=== PATIENT | male | born 1935 | race Caucasian/White ===

== ENCOUNTER 2018-05-31 07:56 | Emergency (ER) | payer MEDICARE, OTHER ==
--- NOTE | 2018-05-31 08:00 | EDM.PDOC ---
ED HPI GENERAL MEDICAL PROBLEM - General Chief Complaint: Chest Pain Stated Complaint: CHEST PAIN Time Seen by Provider: 05/31/18 08:00 Source of Information: Reports: Patient History Limitations: Reports: No Limitations - History of Present Illness INITIAL COMMENTS - FREE TEXT/NARRATIVE: 83-year-old male presents to the ED with chief complaint of diffuse abdominal discomfort feeling very bloated and distended. Still passing some flatus. States she's been up most of the night not sleeping. Over the last hour or so he 's developed a diffuse central chest pain across both upper anterior chest. Burping seems to relieve the discomfort somewhat. Pain doesn't seem to radiate into his back neck or shoulders. Does make him feel somewhat short of breath. He is mildly diaphoretic. Used to smoke but quit 40 years ago. Denies cough or sputum production. Denies any fever or chills. He states he is still passing a little bit of flatus. Has intermittent diarrhea and constipation issues particularly over the last month. Does have a history of GERD but well controlled on Prilosec daily. Onset: Today Onset Date: 05/31/18 Onset Time: 07:15 Duration: Minutes: Location: Reports: Chest, Abdomen (Abdominals discomfort with bloated feeling most of the night.) Quality: Reports: Ache, Pressure Severity: Moderate Improves with: Reports: None (7 out of 10), Other (Perhaps slightly better with burping.) Worsens with: Reports: None Context: Denies: Activity, Exercise, Lifting, Sick Contact, Trauma, Other Associated Symptoms: Reports: Chest Pain, Diaphoresis, Loss of Appetite, Malaise , Nausea/Vomiting (Transient nausea earlier with no vomiting.), Shortness of Breath. Denies: No Other Symptoms, Confusion (Across upper anterior chest bilaterally), Cough, cough w sputum, Fever/Chills (Mild.), Headaches, Rash, Seizure, Syncope Treatments FEDERAL AGENT: Reports: Other (see below) (None.) Chest Pain Score (Numeric/FACES): 8 - Related Data Allergies Allergy/AdvReac Type Severity Reaction Status Date / Time No Known Allergies Allergy Verified 05/31/18 09:20 Home Meds: Home Meds Carvedilol 3.125 mg PO BID 05/31/18 [History] Omeprazole 20 mg PO DAILY 05/31/18 [History] Ramipril [Altace] 10 mg PO BEDTIME 05/31/18 [History] Ranitidine HCl [Zantac] 150 mg PO DAILY 05/31/18 [History] Past Medical History Cardiovascular History: Reports: Hypertension Gastrointestinal History: Reports: GERD, Other (See Below) (Previous primary resection of parts of his: Visibly due to diverticulitis with primary and a stenosis.) - Past Surgical History GI Surgical History: Reports: Appendectomy, Other (See Below) (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 Received chemotherapy through [facility] in [place]. ) Social & Family History - Tobacco Use Smoking Status *Q: Former Smoker (Quit 40 years ago) Tobacco Use Within Last Twelve Months: Cigarettes - Living Situation & Occupation Occupation: Retired ED ROS GENERAL - Review of Systems Review Of Systems: See Below Constitutional: Reports: Malaise, Fatigue, Decreased Appetite. Denies: Fever, Chills HEENT: Reports: Glasses Respiratory: Reports: Shortness of Breath. Denies: Wheezing, Pleuritic Chest Pain, Cough Cardiovascular: Reports: Chest Pain, Blood Pressure Problem (See history of present illness), Dyspnea on Exertion (Has appreciated increased edema of his lower extremities over the last 4-5 days each dyspnea on exertion the last for 5 days), Edema. Denies: Claudication, Lightheadedness, Orthopnea ( chronic hypertension) Endocrine: Reports: Fatigue GI/Abdominal: Reports: Abdominal Pain, Decreased Appetite. Denies: Constipation , Diarrhea (Diffuse abdominal discomfort particularly upper abdomen somewhat relieved by burping and belching.) : Reports: Frequency, Other (Nocturia 3 or 4 per night. Known prostatic hypertrophy) Musculoskeletal: Reports: Joint Pain (Knees hips neck shoulders back at times.) Skin: Reports: No Symptoms Neurological: Reports: No Symptoms Psychiatric: Reports: No Symptoms ED EXAM, GENERAL - Physical Exam Exam: See Below Exam Limited By: No Limitations General Appearance: Alert, WD/WN, Moderate Distress (He is in moderate distress mostly respiratory. Respiratory rate of 20/m. Sats are 100%.) Eye Exam: Right Eye: Normal Inspection (No jaundice.) Throat/Mouth: Normal Lips, Other Head: Atraumatic, Normocephalic Neck: Normal Inspection, Supple, Non-Tender, Full Range of Motion. No: Lymphadenopathy (L), Lymphadenopathy (R) Respiratory/Chest: Normal Breath Sounds, No Accessory Muscle Use, Chest Non- Tender, Respiratory Distress (Mild tachypnea at rest.). No: Rales, Rhonchi, Wheezing Cardiovascular: Regular Rate, Rhythm, No Gallop, No Murmur, No Rub. No: Normal Peripheral Pulses Peripheral Pulses: 1+: Posterior Tibial (L), Posterior Tibial (R), Dorsalis Pedis (L), Dorsalis Pedis (R) GI/Abdominal: Soft, Non-Tender, No Organomegaly, Distended (Palpable midabdominal mass with a small ventral hernia appreciated. Mild distended intubated to percussion particularly upper abdomen from aerophagia.), Abnormal Bowel Sounds (Hyperactive bowel sounds upper quadrant.), Other (He has had previous appendectomy. He states he had previous colon resection and primary reanastomosis. Apparently this was done because of diverticulitis. Patient does have a central abdominal mass larger than the palm of my hand compatible with a ventral hernia.) Back Exam: Normal Inspection, Full Range of Motion. No: CVA Tenderness (L), CVA Tenderness (R) Extremities: Normal Inspection, Normal Range of Motion, Pedal Edema (2+ pitting edema bilaterally.), Other (Evidence of arthritic changes in his knees and hips. ) Neurological: Alert, Oriented, CN II-XII Intact, Normal Cognition Psychiatric: Normal Affect, Normal Mood Skin Exam: Warm, Dry, Intact, Normal Color, Diaphoretic (Slight diaphoresis knee but neck appreciated on exam) EKG INTERPRETATION EKG Date: 05/31/18 Time: 08:10 Rhythm: NSR Rate (Beats/Min): 85 [place]: LAD-Left [place] Deviation P-Wave: Enlarged (Mild left axis deviation of -11. Left atrial hypertrophy pattern) QRS: Other (There is early R-wave transition compatible with right ventricular hypertrophy. There is left ventricular hypertrophy pattern as well.) ST-T: Depressed (Mild ST segment depression V2 to V6 as well as lead 1 and questionable aVL.) QT: Prolonged (QT interval is mildly prolonged.) EKG Interpretation Comments: Abnormal ECG Course - Vital Signs Last Recorded V/S: Last Vital Signs Temp 36.4 C 05/31/18 07:59 Pulse 94 05/31/18 07:59 Resp 16 05/31/18 07:59 BP 197/100 H 05/31/18 07:59 Pulse Ox 100 05/31/18 07:59 - Orders/Labs/Meds Orders: Active Orders 24 hr Category Date Time Status Bladder Scan [RC] ASDIRECTED Care 05/31/18 09:35 Active EKG Documentation Completion [RC] STAT Care 05/31/18 08:05 Active EKG Documentation Completion [RC] STAT Care 05/31/18 11:25 Active Insert Bales Catheter [Insert Urinary Catheter] [OM.PC] Care 05/31/18 10:00 Ordered Q24H Urinary Catheter Assessment [RC] ASDIRECTED Care 05/31/18 09:52 Active Chest 1V Frontal [CR] Stat Exams 05/31/18 08:05 Taken CBC W/O DIFF,HEMOGRAM [HEME] MOTH@0700 Lab 06/02/18 07:00 Ordered CBC W/O DIFF,HEMOGRAM [HEME] MOTH@0700 Lab 06/06/18 07:00 Ordered CBC W/O DIFF,HEMOGRAM [HEME] MOTH@0700 Lab 06/09/18 07:00 Ordered CBC W/O DIFF,HEMOGRAM [HEME] MOTH@0700 Lab 06/13/18 07:00 Ordered CBC W/O DIFF,HEMOGRAM [HEME] MOTH@0700 Lab 06/16/18 07:00 Ordered CBC W/O DIFF,HEMOGRAM [HEME] MOTH@0700 Lab 06/20/18 07:00 Ordered Heparin Sodium/D5W [Heparin 25,000 Units in D5W 500 ML] Med 05/31/18 11:30 Active 25,000 units in 500 ml IV TITRATE Nitroglycerin/D5W [Nitroglycerin 25 MG/D5W 250 ML] Med 05/31/18 08:15 Active 25 mg in 250 ml IV ASDIRECTED Sodium Chloride 0.9% [Normal Saline] 1,000 ml Med 05/31/18 08:15 Active IV ASDIRECTED Medication Orders Sodium Chloride (Normal Saline) 1,000 mls @ 125 mls/hr IV ASDIRECTED DAQUAN Last Admin: 05/31/18 08:55 Dose: 125 mls/hr Nitroglycerin/Dextrose (Nitroglycerin 25 Mg/D5w 250 Ml) 25 mg in 250 mls @ 6 mls/hr IV ASDIRECTED DAQUAN Last Admin: 05/31/18 08:58 Dose: 10 mcg/min, 6 mls/hr Heparin Sodium/Dextrose (Heparin 25,000 Units In D5w 500 Ml) 25,000 units in 500 mls @ 20 mls/hr IV TITRATE DAQUAN Last Admin: 05/31/18 11:32 Dose: 1,000 units/hr, 20 mls/hr Labs: Laboratory Tests 05/31/18 05/31/18 05/31/18 Range/Units 08:07 08:07 08:07 WBC 14.00 H (4.23-9.07) K/mm3 RBC 4.39 L (4.63-6.08) M/mm3 Hgb 14.1 (13.7-17.5) gm/L Hct 41.5 (40.1-51.0) % MCV 94.5 H (79.0-92.2) fl MCH 32.1 (25.7-32.2) pg MCHC 34.0 (32.2-35.5) g/dl RDW Std Deviation 43.9 (35.1-43.9) fL Plt Count 161 L (163-337) K/mm3 MPV 10.4 (9.4-12.3) fl Neutrophils % (Manual) 72 H (40-60) % Band Neutrophils % 6 (0-10) % Lymphocytes % (Manual) 10 L (20-40) % Atypical Lymphs % 0 % Monocytes % (Manual) 9 (2-10) % Eosinophils % (Manual) 3 (0.8-7.0) % Basophils % (Manual) 0 L (0.2-1.2) Toxic Granulation 1+ slight Platelet Estimate Decreased Plt Morphology Comment Normal RBC Morph Comment Normal Sodium 142 (136-145) mEq/L Potassium 3.9 (3.5-5.1) mEq/L Chloride 103 (98-107) mEq/L Carbon Dioxide 24 (21-32) mEq/L Anion Gap 18.9 H (5-15) BUN 21 H (7-18) mg/dL Creatinine 1.8 H (0.7-1.3) mg/dL Est Cr Clr Drug Dosing 28.05 mL/min Estimated GFR (MDRD) 36 (>60) mL/min BUN/Creatinine Ratio 11.7 L (14-18) Glucose 141 H (83-115) mg/dL Lactic Acid (0.4-2.0) mmol/L Calcium 9.8 (8.5-10.1) mg/dL Magnesium 1.9 (1.8-2.4) mg/dl Total Bilirubin 1.2 H (0.2-1.0) mg/dL AST 18 (15-37) U/L ALT 29 (16-63) U/L Alkaline Phosphatase 154 H (46-116) U/L CK-MB (CK-2) 3.1 (0-3.6) ng/ml Troponin I < 0.017 (0.00-0.056) ng/mL C-Reactive Protein < 0.2 (<1.0) mg/dL NT-Pro-B Natriuret Pep 922 H (0-450) pg/mL Total Protein 7.6 (6.4-8.2) g/dl Albumin 4.0 (3.4-5.0) g/dl Globulin 3.6 gm/dL Albumin/Globulin Ratio 1.1 (1-2) Lipase 86 (73-393) U/L 05/31/18 05/31/18 Range/Units 08:35 10:13 WBC (4.23-9.07) K/mm3 RBC (4.63-6.08) M/mm3 Hgb (13.7-17.5) gm/L Hct (40.1-51.0) % MCV (79.0-92.2) fl MCH (25.7-32.2) pg MCHC (32.2-35.5) g/dl RDW Std Deviation (35.1-43.9) fL Plt Count (163-337) K/mm3 MPV (9.4-12.3) fl Neutrophils % (Manual) (40-60) % Band Neutrophils % (0-10) % Lymphocytes % (Manual) (20-40) % Atypical Lymphs % % Monocytes % (Manual) (2-10) % Eosinophils % (Manual) (0.8-7.0) % Basophils % (Manual) (0.2-1.2) Toxic Granulation Platelet Estimate Plt Morphology Comment RBC Morph Comment Sodium (136-145) mEq/L Potassium (3.5-5.1) mEq/L Chloride (98-107) mEq/L Carbon Dioxide (21-32) mEq/L Anion Gap (5-15) BUN (7-18) mg/dL Creatinine (0.7-1.3) mg/dL Est Cr Clr Drug Dosing mL/min Estimated GFR (MDRD) (>60) mL/min BUN/Creatinine Ratio (14-18) Glucose (83-115) mg/dL Lactic Acid 2.9 H (0.4-2.0) mmol/L Calcium (8.5-10.1) mg/dL Magnesium (1.8-2.4) mg/dl Total Bilirubin (0.2-1.0) mg/dL AST (15-37) U/L ALT (16-63) U/L Alkaline Phosphatase (46-116) U/L CK-MB (CK-2) 3.9 H (0-3.6) ng/ml Troponin I 0.121 H* (0.00-0.056) ng/mL C-Reactive Protein (<1.0) mg/dL NT-Pro-B Natriuret Pep (0-450) pg/mL Total Protein (6.4-8.2) g/dl Albumin (3.4-5.0) g/dl Globulin gm/dL Albumin/Globulin Ratio (1-2) Lipase (73-393) U/L Meds: Medications Generic Name Dose Route Start Last Admin Trade Name Freq PRN Reason Stop Dose Admin Sodium Chloride 1,000 mls @ 125 mls/hr 05/31/18 08:15 05/31/18 08:55 Normal Saline IV 125 mls/hr ASDIRECTED DAQUAN Administration Nitroglycerin/Dextrose 25 mg in 250 mls @ 6 mls/hr 05/31/18 08:15 05/31/18 08 :58 Nitroglycerin 25 Mg/D5w 250 Ml IV 10 mcg/min ASDIRECTED DAQUAN 6 mls/hr Administration 10 MCG/MIN Heparin Sodium/Dextrose 25,000 units in 500 mls @ 20 mls/hr 05/31/18 11:30 11:32 Heparin 25,000 Units In D5w 500 Ml IV 1,000 units/hr TITRATE DAQUAN 20 mls/hr Administration 1,000 UNITS/HR Discontinued Medications Generic Name Dose Route Start Last Admin Trade Name Freq PRN Reason Stop Dose Admin Aspirin 324 mg 05/31/18 08:07 05/31/18 08:59 Aspirin PO 05/31/18 08:08 324 mg ONETIME ONE Administration Furosemide 40 mg 05/31/18 09:18 05/31/18 09:30 Lasix IVPUSH 05/31/18 09:19 40 mg NOW ONE Administration Heparin Sodium (Porcine) 5,000 units 05/31/18 11:22 05/31/18 11:30 Heparin Sodium IVPUSH 05/31/18 11:23 5,000 units ONETIME ONE Administration Hydromorphone HCl 0.5 mg 05/31/18 08:07 05/31/18 08:57 Dilaudid IVPUSH 05/31/18 08:08 0.5 mg ONETIME ONE Administration Lidocaine HCl 10 ml 05/31/18 09:51 05/31/18 09:57 Xylocaine 2% Jelly MUCMEM 05/31/18 09:52 10 ml ONETIME ONE Administration Metoclopramide HCl 7.5 mg 05/31/18 08:07 05/31/18 08:55 Reglan IVPUSH 05/31/18 08:08 7.5 mg ONETIME ONE Administration - Radiology Interpretation Free Text/Narrative:: 83-year-old male presents to the ED with diffuse abdominal discomfort feels very bloated and has been burping and belching most of the night and not sleeping because of this. About an hour ago he started to develop diffuse anterior chest discomfort across both sides of his upper anterior chest not radiating to his back. Burping seems to alleviate some of this chest discomfort. He has never expressed angina before. Past history of smoking but quit 40 years ago. Lungs are clear to since he is in sinus rhythm. BP is maintained at 190/92 at present. ECG suggests by ventricular hypertrophy right and left. There is very slight ST segment depression V2 to V6 and lead 1 questionable in aVL. Cannot rule out anterior wall ischemia. Patient will receive aspirin 324 mg chewed and be started on nitroglycerin drip at 10 mcg/m. One view chest x-ray one view abdomen to be done routine labs including cardiac markers BNP. He does have significant edema in both lower extremities compatible with right sided heart failure - Re-Assessments/Exams Free Text/Narrative Re-Assessment/Exam: 05/31/18 09:15 chest x-ray done portably appears to be within normal limits. Cardiac silhouette is normal. Lungs are clear. X-ray of the abdomen reveals increased stool right upper quadrant of the abdomen at the hepatic flexure. There is a large amount of air distending the small bowel with no definitive bowel obstruction. i.e. no air-fluid levels. Moreof an ileus type pattern. Very little air in the colon. Patient has had previous cholecystectomy and there is air in the biliary tree. Patient has hardware across the pubic symphysis. Bladder appears to be full as there is haziness within the pelvis. At present patient states his chest pain is pretty well gone. Blood pressure remains 143/88 on the nitro drip at 10 mcg/m. Heart rate is 96. Sats are 92-95%. 05/31/18 09:18 Labs reveal an elevated white count at 14.00 with 72% neutrophils and 6% band cells. Hemoglobin is 14.1. Hematocrit is 41.5. His 161, 000. Sodium 142 with a potassium of 3.9. Chloride 103 with a bicarbonate 24. And a gap is elevated at 18.9. BUNs 21 with a creatinine of 1.8. Estimated GFR is 36 i.e. stage III chronic kidney disease. Glucose is 141 with lactic acid elevated at 2.9. Calcium is 9.8 with a magnesium level of 1.9. Total bilirubin is mildly elevated at 1.2. AST is 18 and ALT is 29. Alkaline phosphatase is mildly elevated 154. CK-MB fraction is 3.1. Troponin I is less than 0.017. BNP is elevated at 922. Lipase is normal at 86. Plan he will be given Lasix 40 mg IV. We'll try and do a CT of his abdomen with oral contrast only. His creatinine is 1.8 with a GFR of 36 and therefore IV contrast will be withheld. 05/31/18 09:36 patient feels he still unable to void. Bladder scan will be done and likely will need a Bales catheter placement. 05/31/18 09:53 bladder scan reveals approximately 1410 mils of urine in the urinary bladder. Therefore Bales catheter will be placed and left in. Ordered urine jet to facilitate the procedure 05/31/18 11:13 Second set of cardiac markers will a man as a myocardial infarction. CK-MB fraction is 3.9 with troponin I of 0.121. Initial was less than 0.017 he will thus be started on heparin 5000 unit bolus and 1000 units an hour. Plan will be to transfer him to [place]. She reports his chest pain is pretty well gone. CT the abdomen and pelvis has been completed with oral contrast only. Clips are appreciated from previous cholecystectomy. There is noted within the biliary tree. Spleen appears to be within normal limits. Small nodule noted next to the spleen most likely representing accessory splenic tissue. I did land shows no nodule. Pancreas within normal limits. Aorta shows atherosclerotic calcification with mild areas of ectasia with no aneurysmal dilatation. There are noted dilated extrarenal pelvises bilaterally suggesting that he is likely suffering chronic obstructive uropathy. Bladder remains distended in spite of draining over 1500 mils since Bales catheter was placed. Prostate gland is markedly enlarged with multiple calcifications. There is noted within the bladder with Bales catheter in place. Multiple diverticula are seen within the sigmoid colon with no inflammatory changes to suggest diverticulitis. No small bowel dilatation is seen focal increased stool is appreciated throughout the right colon and right side of the transverse colon. Appendix is absent. Old bony trauma noted within the pelvis artifact appreciated from orthopedic hardware fixing the pubic symphysis. Scattered degenerative change with vacuum phenomenon is seen within the lumbar spine. 05/31/18 11:47 spoke with one call nurse at [facility] in [place] and hospitalist Dr Plata.. He is accepted care of the patient be transported to that institution per ground embolus. Plan will be to place him on a telemetry unit unless he develops further chest pain. 05/31/18 12:16 signs show BP 110/78. Heart rate 100 sats 97% on room air. [facility] will be here shortly to provide transport her to [place]. Departure - Departure Time of Disposition: 12:17 Disposition: DC/Tfer to Acute Hospital 02 Reason for Transfer *Q: Primary PCI Indicated Condition: Fair Clinical Impression: Acute urinary retention, Renal insufficiency Acute myocardial infarction Qualifiers: Myocardial infarction type: non-ST elevation myocardial infarction Qualified Code(s): I21.4 - Non-ST elevation (NSTEMI) myocardial infarction Referrals: Camilla Patiño NP [Primary Care Provider] - Forms: ED Department Discharge Additional Instructions: Patient presented with diffuse anterior chest pain right left sides. Initial ECG suggested right ventricular hypertrophy and left ventricular pressure to be with strain pattern. There is a possibility of mild ST segment depression V3 to V6. ECG was improved in terms of ST segment improvement back to baseline with a diffuse early repolarization pattern. However second set of cardiac markers done 2 hours from the time he arrived and approximate 4 hours from the time he developed the chest pain will demand as an infarct. He remains test for pain- free on nitro drip at 10 mcg/m. He did have 4 aspirins chewed when he came to the ED. Placed on heparin 5000 unit bolus and 1000 units an hour. Abdominal pain was his other chief complaint nonspecific nausea pressure below discomfort. Identified to be in acute urinary retention with greater than 1400 mils on bladder scan. He is over 2500 mils of urine since 16-gauge coud tip Bales catheter placement. He does have mild renal insufficiency markedly enlarged prostate on CT exam. - My Orders Last 24 Hours: My Active Orders 05/31/18 08:05 EKG Documentation Completion [RC] STAT Chest 1V Frontal [CR] Stat 05/31/18 08:15 Nitroglycerin/D5W [Nitroglycerin 25 MG/D5W 250 ML] 25 mg in 250 ml IV ASDIRECTED Sodium Chloride 0.9% [Normal Saline] 1,000 ml IV ASDIRECTED 05/31/18 09:35 Bladder Scan [RC] ASDIRECTED 05/31/18 09:52 Urinary Catheter Assessment [RC] ASDIRECTED 05/31/18 10:00 Insert Bales Catheter [Insert Urinary Catheter] [OM.PC] Q24H 05/31/18 11:25 EKG Documentation Completion [RC] STAT 05/31/18 11:30 Heparin Sodium/D5W [Heparin 25,000 Units in D5W 500 ML] 25,000 units in 500 ml IV TITRATE 06/02/18 07:00 CBC W/O DIFF,HEMOGRAM [HEME] MOTH@0700 06/06/18 07:00 CBC W/O DIFF,HEMOGRAM [HEME] MOTH@0700 06/09/18 07:00 CBC W/O DIFF,HEMOGRAM [HEME] MOTH@0700 06/13/18 07:00 CBC W/O DIFF,HEMOGRAM [HEME] MOTH@0700 06/16/18 07:00 CBC W/O DIFF,HEMOGRAM [HEME] MOTH@0700 06/20/18 07:00 CBC W/O DIFF,HEMOGRAM [HEME] MOTH@0700 - Assessment/Plan Last 24 Hours: My Active Orders 05/31/18 08:05 EKG Documentation Completion [RC] STAT Chest 1V Frontal [CR] Stat 05/31/18 08:15 Nitroglycerin/D5W [Nitroglycerin 25 MG/D5W 250 ML] 25 mg in 250 ml IV ASDIRECTED Sodium Chloride 0.9% [Normal Saline] 1,000 ml IV ASDIRECTED 05/31/18 09:35 Bladder Scan [RC] ASDIRECTED 05/31/18 09:52 Urinary Catheter Assessment [RC] ASDIRECTED 05/31/18 10:00 Insert Bales Catheter [Insert Urinary Catheter] [OM.PC] Q24H 05/31/18 11:25 EKG Documentation Completion [RC] STAT 05/31/18 11:30 Heparin Sodium/D5W [Heparin 25,000 Units in D5W 500 ML] 25,000 units in 500 ml IV TITRATE 06/02/18 07:00 CBC W/O DIFF,HEMOGRAM [HEME] MOTH@0700 06/06/18 07:00 CBC W/O DIFF,HEMOGRAM [HEME] MOTH@0700 06/09/18 07:00 CBC W/O DIFF,HEMOGRAM [HEME] MOTH@0700 06/13/18 07:00 CBC W/O DIFF,HEMOGRAM [HEME] MOTH@0700 06/16/18 07:00 CBC W/O DIFF,HEMOGRAM [HEME] MOTH@0700 06/20/18 07:00 CBC W/O DIFF,HEMOGRAM [HEME] MOTH@0700
[2018-05-31] MEDS ORDERED: HYDROmorphone 1 MG/ML Syringe IVPUSH ONE (08:07)
[2018-05-31] MEDS ORDERED: Aspirin 81 MG Tab.Chew PO ONE (08:07)
[2018-05-31] MEDS ORDERED: Metoclopramide 10 MG/2 ML SDV IVPUSH ONE (08:07)
[2018-05-31] MEDS ORDERED: Sodium Chloride 0.9% 1,000 ML IV SCH (08:15)
[2018-05-31] MEDS ORDERED: Nitroglycerin/D5W 25 MG/250 ML BOTTLE IV SCH (08:15)
[2018-05-31] MEDS ORDERED: Furosemide 40 MG/4 ML VIAL IVPUSH ONE (09:18)
--- NOTE | 2018-05-31 09:27 | CR ---
Abdomen: Supine view of the abdomen was obtained. Comparison: No prior abdominal x-ray. Old trauma to the pelvis is seen. Orthopedic hardware is noted across the pubic symphysis. Vascular calcification is noted. Scattered gas is noted within multiple small bowel loops which are not dilated. Small amount of colonic gas is noted. Degenerative change is scattered within the spine. Previous cholecystectomy is noted. Biliary air is present. Soft tissue density arising from the pelvis is seen most likely representing a urine distended bladder. Impression: 1. Slightly prominent gas within nondilated small bowel loops raising the possibility of ileus. 2. Haziness within the pelvis presumably due to urine distended bladder. 3. Other incidental findings. Diagnostic code #3
[2018-05-31] MEDS ORDERED: Lidocaine 2% Jelly 10 ML Urojet MUCMEM ONE (09:51)
--- NOTE | 2018-05-31 11:12 | CT ---
CT abdomen and pelvis Technique: Multiple axial sections were obtained from above the dome of the diaphragm inferiorly through the pubic symphysis. Intravenous contrast not utilized. Oral contrast has been given. Comparison: Prior abdominal x-ray performed earlier on the same day (08:19 AM). Findings: Visualized lung bases are clear of acute parenchymal densities. Noncontrast appearance of the liver shows no focal abnormality. Surgical clips are seen from prior cholecystectomy. Air noted within the biliary tree. Spleen appears within normal limits. Small nodule noted next to the spleen most likely representing accessory splenic tissue. Adrenal glands show no nodule. Pancreas is within normal limits. Aorta shows atherosclerotic calcification with mild areas of ectasia with no aneurysm. Dilated extrarenal pelves are seen on both sides as well as dilated ureters down to the bladder. Bladder is distended. Prostate gland is enlarged. Air is noted within the bladder with Bales catheter in place. Calcifications are seen within the enlarged prostate gland. Multiple diverticuli are seen within the sigmoid colon with no inflammatory change of diverticulitis. No small bowel dilatation is seen. Focal increased stool is noted within the right colon and right side of the transverse colon. Appendix is not seen. Old bony trauma is noted within the pelvis. Artifact is noted from orthopedic hardware affixing the pubic symphysis. Scattered degenerative change with vacuum phenomena is seen within the lumbar spine. Impression: 1. Dilated bladder with Bales catheter in place. Air within the bladder compatible with recent instrumentation. Dilated ureters as well as extrarenal pelves on both sides likely secondary to bladder outlet obstruction. 2. Enlarged prostate gland containing calcifications. 3. Other incidental findings as noted above. Diagnostic code #3
[2018-05-31] MEDS ORDERED: Heparin Sodium 5,000 Units/ML Vial IVPUSH ONE (11:22)
[2018-05-31] MEDS ORDERED: Heparin Sodium/D5W 25,000 UNITS/500 ML BAG IV SCH (11:30)
--- NOTE | 2018-05-31 16:16 | CR ---
Chest: Portable view of the chest was obtained. Comparison: No prior chest x-ray. Heart size is normal. Tortuous thoracic aorta is seen. Central lung markings are increased. Lungs otherwise are clear. Bony structures are osteopenic. Stent is noted within the left subclavian region. Impression: 1. Increased central lung markings. These are most likely chronic but would need old films to confirm. Difficult to exclude bronchitis based on this single study. 2. Other incidental findings as noted above. Diagnostic code #3
== END 2018-05-31 12:29 ==
LOC: JD.ED 07:56
DX: I21.4 Non-ST elevation (NSTEMI) myocardial infarction (principal); N28.9 Disorder of kidney and ureter, unspecified; R33.9 Retention of urine, unspecified; I10 Essential (primary) hypertension; Z79.899 Other long term (current) drug therapy; Z87.891 Personal history of nicotine dependence
CPT/HCPCS: 36415; 51702; 71045; 74018; 74177; 80053; 82553; 83605; 83690; 83735; 83880; 84484; 85007; 85027; 86140; 93005; 96365; 96366; 96368; 96375; 96376; 99285; A9270; G0103; J1170; J1644; J1940; J2765; J3490; J7040; 93010

== ENCOUNTER 2018-06-17 12:54 | Observation (INO) | payer MEDICARE, OTHER ==
[2018-06-17] MEDS ORDERED: Lidocaine 2% Jelly 10 ML Urojet MUCMEM ONE (14:26)
--- NOTE | 2018-06-17 18:27 | EDM.PDOC ---
ED HPI GENERAL MEDICAL PROBLEM - General Chief Complaint: Genitourinary Problem Stated Complaint: BLOOD IN URINE Time Seen by Provider: 06/17/18 13:17 Source of Information: Reports: Patient, Family History Limitations: Reports: No Limitations - History of Present Illness INITIAL COMMENTS - FREE TEXT/NARRATIVE: The patient presents with hematuria. He is here with his daughter. He has an enlarged prostate and having trouble urinating. His urologist Dr Tabares instructed him to start strait cathing. Thing were going good until last night he started having blood and it was tiffani blood. He had 1200mls at one time. His daughter said he may have had a couple clots. He has no fever, chills, cough, congestion, runny nose, abdominal pain, nausea or vomiting. Onset: Gradual Duration: Day(s): (last night) Severity: Moderate Improves with: Reports: None Worsens with: Reports: None Associated Symptoms: Reports: No Other Symptoms - Related Data Allergies Allergy/AdvReac Type Severity Reaction Status Date / Time No Known Allergies Allergy Verified 06/17/18 17:43 Home Meds: Home Meds Omeprazole 20 mg PO DAILY 05/31/18 [History] Ranitidine HCl [Zantac] 150 mg PO DAILY 05/31/18 [History] Aspirin 81 mg PO DAILY 06/16/18 [History] Carvedilol [Coreg] 3.125 mg PO BID 06/16/18 [History] Clopidogrel Bisulfate [Clopidogrel] 75 mg PO DAILY 06/16/18 [History] Isosorbide Mononitrate [Isosorbide Mononitrate ER] 30 mg PO DAILY 06/16/18 [ History] Multivitamin [Multivitamins] 1 each PO DAILY 06/16/18 [History] Nitroglycerin 0.4 mg SL ASDIRECTED PRN 06/16/18 [History] [place]-3/DHA/Epa/Fish Oil [[place] 3 500 Softgel] 1,000 mg PO DAILY 06/16/18 [ History] Ramipril 2.5 mg PO DAILY 06/16/18 [History] Rosuvastatin [Crestor] 10 mg PO DAILY 06/16/18 [History] Tamsulosin HCl 0.4 mg PO DAILY 06/16/18 [History] Past Medical History HEENT History: Reports: Impaired Vision Cardiovascular History: Reports: Hypertension Gastrointestinal History: Reports: GERD, Other (See Below) Genitourinary History: Reports: Prostate Disorder Oncologic (Cancer) History: Reports: Colon - Past Surgical History HEENT Surgical History: Reports: Cataract Surgery GI Surgical History: Reports: Appendectomy, Other (See Below) Social & Family History - Tobacco Use Smoking Status *Q: Never Smoker - Caffeine Use Caffeine Use: Reports: Coffee, Tea - Recreational Drug Use Recreational Drug Use: No - Living Situation & Occupation Occupation: Retired ED ROS GENERAL - Review of Systems Review Of Systems: See Below Constitutional: Reports: No Symptoms HEENT: Reports: No Symptoms Respiratory: Reports: No Symptoms Cardiovascular: Reports: No Symptoms Endocrine: Reports: No Symptoms GI/Abdominal: Reports: No Symptoms : Reports: Hematuria Musculoskeletal: Reports: No Symptoms ED EXAM, RENAL/ - Physical Exam Exam: See Below Exam Limited By: No Limitations General Appearance: Alert, No Apparent Distress Ears: Normal External Exam Nose: Normal Inspection Head: Atraumatic, Normocephalic Neck: Normal Inspection Respiratory/Chest: No Respiratory Distress, Lungs Clear, Normal Breath Sounds Cardiovascular: Regular Rate, Rhythm, No Edema, No Murmur GI/Abdominal: Soft, Non-Tender, No Organomegaly, No Mass Course - Vital Signs Last Recorded V/S: Last Vital Signs Temp 97.8 F 06/17/18 13:16 Pulse 77 06/17/18 13:16 Resp 20 06/17/18 13:16 BP 117/59 L 06/17/18 13:16 Pulse Ox 100 06/17/18 13:16 - Orders/Labs/Meds Orders: Active Orders 24 hr Category Date Time Status Bladder Irrigation [RC] BID Care 06/17/18 13:38 Active Insert Farfan Catheter [Insert Urinary Catheter] [OM.PC] Care 06/17/18 13:45 Ordered Q24H Urinary Catheter Assessment [RC] ASDIRECTED Care 06/17/18 13:38 Active CULTURE URINE [RM] Stat Lab 06/17/18 14:55 Received Labs: Laboratory Tests 06/17/18 06/17/18 06/17/18 Range/Units 14:08 14:08 14:55 WBC 6.55 (4.23-9.07) K/mm3 RBC 3.26 L (4.63-6.08) M/mm3 Hgb 10.5 L (13.7-17.5) gm/L Hct 31.3 L (40.1-51.0) % MCV 96.0 H (79.0-92.2) fl MCH 32.2 (25.7-32.2) pg MCHC 33.5 (32.2-35.5) g/dl RDW Std Deviation 44.4 H (35.1-43.9) fL Plt Count 215 (163-337) K/mm3 MPV 9.6 (9.4-12.3) fl Neut % (Auto) 57.7 (34.0-67.9) % Lymph % (Auto) 27.3 (21.8-53.1) % [place] % (Auto) 8.9 (5.3-12.2) % Eos % (Auto) 5.3 (0.8-7.0) Baso % (Auto) 0.6 (0.1-1.2) % Neut # (Auto) 3.78 (1.78-5.38) K/mm3 Lymph # (Auto) 1.79 (1.32-3.57) K/mm3 [place] # (Auto) 0.58 (0.30-0.82) K/mm3 Eos # (Auto) 0.35 (0.04-0.54) K/mm3 Baso # (Auto) 0.04 (0.01-0.08) K/mm3 Sodium 140 (136-145) mEq/L Potassium 3.8 (3.5-5.1) mEq/L Chloride 105 (98-107) mEq/L Carbon Dioxide 25 (21-32) mEq/L Anion Gap 13.8 (5-15) BUN 15 (7-18) mg/dL Creatinine 1.3 (0.7-1.3) mg/dL Est Cr Clr Drug Dosing 38.84 mL/min Estimated GFR (MDRD) 52 (>60) mL/min BUN/Creatinine Ratio 11.5 L (14-18) Glucose 113 (83-115) mg/dL Calcium 8.6 (8.5-10.1) mg/dL Total Bilirubin 0.7 (0.2-1.0) mg/dL AST 21 (15-37) U/L ALT 25 (16-63) U/L Alkaline Phosphatase 109 (46-116) U/L Total Protein 5.7 L (6.4-8.2) g/dl Albumin 2.7 L (3.4-5.0) g/dl Globulin 3.0 gm/dL Albumin/Globulin Ratio 0.9 L (1-2) Urine Color Red H (Yellow) Urine Appearance Turbid H (Clear) Urine pH 6.0 (5.0-8.0) Ur Specific [place] 1.015 (1.005-1.030) Urine Protein 3+ H (Negative) Urine Glucose (UA) Negative (Negative) Urine Ketones 1+ H (Negative) Urine Occult Blood 3+ H (Negative) Urine Nitrite Negative (Negative) Urine Bilirubin 3+ H (Negative) Urine Urobilinogen 1.0 (0.2-1.0) Ur Leukocyte Esterase 3+ H (Negative) Urine RBC Too numerous to cnt H (0-5) /hpf Urine WBC 10-20 H (0-5) /hpf Ur Epithelial Cells 0-5 (0-5) /hpf Urine Bacteria Moderate H (FEW) /hpf Urine Mucus Few (FEW) /hpf Meds: Medications Discontinued Medications Generic Name Dose Route Start Last Admin Trade Name [place] PRN Reason Stop Dose Admin Lidocaine HCl 10 ml 06/17/18 14:26 06/17/18 14:35 Xylocaine 2% Jelly MUCMEM 06/17/18 14:27 10 ml ONETIME ONE Administration - Re-Assessments/Exams Free Text/Narrative Re-Assessment/Exam: 06/17/18 18:28 I ordered an IV saline lock, labs UA and a farfan cath. I ordered a 3 way and do continuous bladder irrigation. His bladder had 525mls. 06/17/18 18:29 His Hgb was low at 10.5. Seventeen days ago he was 14.1. His platelets were normal at 215. His urine had blood and some leukocyte esterase. I ordered a culture. I called the urologist coning machine operator at [facility] in [place] and he was okay with what we did and recommended we might want to observe him tonight. I called Dr Pinto and he agreed to the admission. Departure - Departure Time of Disposition: 18:35 Disposition: Refer to Observation Condition: Good Clinical Impression: Hematuria Qualifiers: Hematuria type: gross Qualified Code(s): R31.0 - Gross hematuria - Discharge Information Referrals: Noel Fernandez MD [Primary Care Provider] - - My Orders Last 24 Hours: My Active Orders 06/17/18 13:38 Bladder Irrigation [RC] BID Urinary Catheter Assessment [RC] ASDIRECTED 06/17/18 13:45 Insert Farfan Catheter [Insert Urinary Catheter] [OM.PC] Q24H 06/17/18 14:55 CULTURE URINE [RM] Stat - Assessment/Plan Last 24 Hours: My Active Orders 06/17/18 13:38 Bladder Irrigation [RC] BID Urinary Catheter Assessment [RC] ASDIRECTED 06/17/18 13:45 Insert Farfan Catheter [Insert Urinary Catheter] [OM.PC] Q24H 06/17/18 14:55 CULTURE URINE [RM] Stat
--- NOTE | 2018-06-17 19:01 | PCM.HP ---
H&P History of Present Illness - General Date of Service: 06/17/18 Admit Problem/Dx: Admission Diagnosis/Problem Admission Diagnosis/Problem Hematuria Source of Information: Patient, Provider History Limitations: Reports: No Limitations - History of Present Illness Initial Comments - Free Text/Narative: This is an 83 yo male with past medical h/o HTN, CAD, NE, GERD, enlarged prostate, colon CA who comes in for hematuria. He c/o difficulty urinating and hematuria. His urologist Dr. Tabares instructed him to start straight-cathing. Last night he started having tiffani blood. His daughter said he may have had a couple clots. He denies F/C, chest pain, cough, congestion, runny nose, abdominal pain, N/V or any other GI/ complaints. His initial workup in the ED showed a CBC remarkable for RBC 3.26, Hgb 10.5, Hct 31.3, MCH 96, RDW 44.4. His chemistry is remarkable for GFR 52, Protein 5.7 , Albumin 2.7. UA positive for blood and suspicious for possible infection. Urine culture pending. He is subsequently admitted to the medical floor for observation. He is CPR only. His PCP is Dr. Fernandez. - Related Data Allergies/Adverse Reactions: Allergies Allergy/AdvReac Type Severity Reaction Status Date / Time No Known Allergies Allergy Verified 06/17/18 17:43 Home Medications: Home Meds Omeprazole 20 mg PO DAILY 05/31/18 [History] Ranitidine HCl [Zantac] 150 mg PO DAILY 05/31/18 [History] Aspirin 81 mg PO DAILY 06/16/18 [History] Carvedilol [Coreg] 3.125 mg PO BID 06/16/18 [History] Clopidogrel Bisulfate [Clopidogrel] 75 mg PO DAILY 06/16/18 [History] Isosorbide Mononitrate [Isosorbide Mononitrate ER] 30 mg PO DAILY 06/16/18 [ History] Multivitamin [Multivitamins] 1 each PO DAILY 06/16/18 [History] Nitroglycerin 0.4 mg SL ASDIRECTED PRN 06/16/18 [History] [place]-3/DHA/Epa/Fish Oil [[place] 3 500 Softgel] 1,000 mg PO DAILY 06/16/18 [ History] Ramipril 2.5 mg PO DAILY 06/16/18 [History] Rosuvastatin [Crestor] 10 mg PO DAILY 06/16/18 [History] Tamsulosin HCl 0.4 mg PO DAILY 06/16/18 [History] Past Medical History HEENT History: Reports: Impaired Vision Cardiovascular History: Reports: Hypertension Gastrointestinal History: Reports: GERD, Other (See Below) Genitourinary History: Reports: Prostate Disorder Oncologic (Cancer) History: Reports: Colon - Past Surgical History HEENT Surgical History: Reports: Cataract Surgery GI Surgical History: Reports: Appendectomy, Other (See Below) Social & Family History - Tobacco Use Smoking Status *Q: Never Smoker - Caffeine Use Caffeine Use: Reports: Coffee, Tea - Recreational Drug Use Recreational Drug Use: No - Living Situation & Occupation Occupation: Retired H&P Review of Systems - Review of Systems: Review Of Systems: See Below General: Reports: No Symptoms. Denies: Fever, Chills HEENT: Reports: No Symptoms Pulmonary: Reports: No Symptoms. Denies: Shortness of Breath, Cough Cardiovascular: Reports: Blood Pressure Problem. Denies: Chest Pain Gastrointestinal: Reports: No Symptoms. Denies: Abdominal Pain, Black Stool, Bloody Stool, Diarrhea, Nausea, Vomiting Genitourinary: Reports: Hematuria, Retention. Denies: Pain Musculoskeletal: Reports: No Symptoms Skin: Reports: No Symptoms Psychiatric: Reports: No Symptoms Neurological: Reports: No Symptoms Hematologic/Lymphatic: Reports: No Symptoms Immunologic: Reports: No Symptoms Exam - Exam Exam: See Below - Vital Signs Vital Signs: Last Vital Signs Temp 97.8 F 06/17/18 13:16 Pulse 77 06/17/18 13:16 Resp 20 06/17/18 13:16 BP 117/59 L 06/17/18 13:16 Pulse Ox 100 06/17/18 13:16 Weight: 180 lb - Exam Quality Assessment: DVT Prophylaxis General: Alert, Oriented, Cooperative, Mild Distress HEENT: Conjunctiva Clear, EACs Clear, EOMI, Hearing Intact, Mucosa Moist & [place] , Nares Patent, Normal Nasal Septum, Posterior Pharynx Clear, PERRLA Neck: Supple, Trachea Midline, 2 Lungs: Clear to Auscultation, Normal Respiratory Effort Cardiovascular: Regular Rate, Regular Rhythm GI/Abdominal Exam: Normal Bowel Sounds, Soft, Non-Tender, No Organomegaly, No Distention, No Abnormal Bruit, No Mass, Pelvis Stable (Male) Exam: Deferred Rectal (Males) Exam: Deferred Back Exam: Normal Inspection Extremities: Normal Inspection, Normal Range of Motion, Non-Tender, No Pedal Edema, Normal Capillary Refill Peripheral Pulses: 2+: Posterior Tibial (L), Posterior Tibial (R), Dorsalis Pedis (L), Dorsalis Pedis (R) Skin: Warm, Dry, Intact Neurological: Cranial Nerves Intact (grossly) Neuro Extensive - Mental Status: Alert, Oriented x3, Normal Mood/Affect, Normal Cognition, Memory Intact Psychiatric: Alert, Normal Affect, Normal Mood - Patient Data Lab Results Last 24 hrs: Laboratory Results - last 24 hr 06/17/18 06/17/18 06/17/18 Range/Units 14:08 14:08 14:55 WBC 6.55 (4.23-9.07) K/mm3 RBC 3.26 L (4.63-6.08) M/mm3 Hgb 10.5 L (13.7-17.5) gm/L Hct 31.3 L (40.1-51.0) % MCV 96.0 H (79.0-92.2) fl MCH 32.2 (25.7-32.2) pg MCHC 33.5 (32.2-35.5) g/dl RDW Std Deviation 44.4 H (35.1-43.9) fL Plt Count 215 (163-337) K/mm3 MPV 9.6 (9.4-12.3) fl Neut % (Auto) 57.7 (34.0-67.9) % Lymph % (Auto) 27.3 (21.8-53.1) % [place] % (Auto) 8.9 (5.3-12.2) % Eos % (Auto) 5.3 (0.8-7.0) Baso % (Auto) 0.6 (0.1-1.2) % Neut # (Auto) 3.78 (1.78-5.38) K/mm3 Lymph # (Auto) 1.79 (1.32-3.57) K/mm3 [place] # (Auto) 0.58 (0.30-0.82) K/mm3 Eos # (Auto) 0.35 (0.04-0.54) K/mm3 Baso # (Auto) 0.04 (0.01-0.08) K/mm3 Sodium 140 (136-145) mEq/L Potassium 3.8 (3.5-5.1) mEq/L Chloride 105 (98-107) mEq/L Carbon Dioxide 25 (21-32) mEq/L Anion Gap 13.8 (5-15) BUN 15 (7-18) mg/dL Creatinine 1.3 (0.7-1.3) mg/dL Est Cr Clr Drug Dosing 38.84 mL/min Estimated GFR (MDRD) 52 (>60) mL/min BUN/Creatinine Ratio 11.5 L (14-18) Glucose 113 (83-115) mg/dL Calcium 8.6 (8.5-10.1) mg/dL Total Bilirubin 0.7 (0.2-1.0) mg/dL AST 21 (15-37) U/L ALT 25 (16-63) U/L Alkaline Phosphatase 109 (46-116) U/L Total Protein 5.7 L (6.4-8.2) g/dl Albumin 2.7 L (3.4-5.0) g/dl Globulin 3.0 gm/dL Albumin/Globulin Ratio 0.9 L (1-2) Urine Color Red H (Yellow) Urine Appearance Turbid H (Clear) Urine pH 6.0 (5.0-8.0) Ur Specific [place] 1.015 (1.005-1.030) Urine Protein 3+ H (Negative) Urine Glucose (UA) Negative (Negative) Urine Ketones 1+ H (Negative) Urine Occult Blood 3+ H (Negative) Urine Nitrite Negative (Negative) Urine Bilirubin 3+ H (Negative) Urine Urobilinogen 1.0 (0.2-1.0) Ur Leukocyte Esterase 3+ H (Negative) Urine RBC Too numerous to cnt H (0-5) /hpf Urine WBC 10-20 H (0-5) /hpf Ur Epithelial Cells 0-5 (0-5) /hpf Urine Bacteria Moderate H (FEW) /hpf Urine Mucus Few (FEW) /hpf Result Diagrams: 06/17/18 14:08 06/17/18 14:08 - Problem List (1) Hematuria SNOMED Code(s): 91073932 ICD Code: R31.9 - HEMATURIA, UNSPECIFIED Status: Acute Priority: High Current Visit: Yes Qualifiers: Hematuria type: gross Qualified Code(s): R31.0 - Gross hematuria Problem List Initiated/Reviewed/Updated: Yes Orders Last 24hrs: Active Orders 24 hr Category Date Time Status Patient Status [ADT] Routine ADT 06/17/18 18:34 Active Bladder Irrigation [RC] BID Care 06/17/18 13:38 Active Insert [place] Catheter [Insert Urinary Catheter] [OM.PC] Care 06/17/18 13:45 Ordered Q24H Urinary Catheter Assessment [RC] ASDIRECTED Care 06/17/18 13:38 Active CULTURE URINE [RM] Stat Lab 06/17/18 14:55 Received Assessment/Plan Comment:: Assessment/Plan: Acute: Hematuria * Likely 2/2 use of straight catheter for urinary retention * Risk factors: On Plavix and ASA--> hold ASA for now; continue Plavix for CAD * His urologist Dr. Tabares instructed him to start straight-cathing d/t difficulty urinating * Last night 1200mls tiffani blood and some clots per daughter * UA positive for blood and possible infection * Urine culture pending * 3-way catheter for bladder irrigation * Urologist on-call at [facility] in [place] contacted in ED recommended to observe him tonight * F/U with urologist Anemia * Likely 2/2 above * Hgb 10.5 (14.1 a week ago) * Monitor * Replenish with PRBCs PRN Chronic: HTN CAD on Plavix and ASA h/o NE; no stent, medical management only per cardiology note on 06/16/18 GERD Enlarged prostate Colon CA Plan: Admit to observation Routine AM Labs Heart Healthy diet DVT prophylaxis/GI prophylaxis Code status: CPR only; PCP: Dr. Fernandez
[2018-06-17] MEDS ORDERED: Ondansetron 4 MG Tab.DIS PO PRN (19:48)
[2018-06-17] MEDS ORDERED: Acetaminophen 325 MG Tab PO PRN (19:48)
[2018-06-17] MEDS ORDERED: Ondansetron 4 MG/2 ML SDV IV PRN (19:48)
[2018-06-17] MEDS ORDERED: HYDROmorphone 1 MG/ML Syringe IVPUSH PRN (19:48)
[2018-06-17] MEDS ORDERED: NITROGLYCERIN 0.4 MG SL PRN (19:57)
[2018-06-17] MEDS ORDERED: Carvedilol 6.25 MG Tab PO SCH (21:00)
[2018-06-17] MEDS: CARVEDILOL 3.125 MG PO SCH (22:00)
[2018-06-18] MEDS: Tamsulosin 0.4 MG Cap.ER**PT OWN PO SCH (08:13)
[2018-06-18] MEDS: CARVEDILOL 3.125 MG PO SCH ×2 (08:15→18:17)
[2018-06-18] MEDS: ISOSORBIDE MONONITRATE 30 MG PO SCH (08:17)
[2018-06-18] MEDS: ROSUVASTATIN 40 MG PO SCH (08:18)
[2018-06-18] MEDS: CLOPIDOGREL 75 MG PO SCH (08:18)
[2018-06-18] MEDS: RAMIPRIL 2.5 MG PO SCH (08:19)
[2018-06-18] MEDS ORDERED: Non-Formulary Medication 1 Each (Ranitidine Hcl 150 MG) PO SCH (09:00)
[2018-06-18] MEDS ORDERED: Famotidine 20 MG Tab PO SCH (09:00)
[2018-06-18] MEDS ORDERED: Pantoprazole 40 MG Tab.CR PO SCH (09:00)
[2018-06-18] MEDS ORDERED: Non-Formulary Medication 1 Each (Multivitamin [Multivitamins] 1 EACH) PO SCH (09:00)
--- NOTE | 2018-06-18 12:37 | PCM.PN ---
- General Info Date of Service: 06/18/18 Functional Status: Reports: Pain Controlled, Tolerating Diet, Ambulating, Urinating - Review of Systems General: Reports: No Symptoms HEENT: Reports: No Symptoms Pulmonary: Reports: No Symptoms Cardiovascular: Reports: No Symptoms Gastrointestinal: Reports: No Symptoms Genitourinary: Reports: No Symptoms Musculoskeletal: Reports: No Symptoms Skin: Reports: No Symptoms Neurological: Reports: No Symptoms Psychiatric: Reports: No Symptoms - Patient Data Vitals - Most Recent: Last Vital Signs Temp 36.7 C 06/18/18 08:14 Pulse 74 06/18/18 08:15 Resp 17 06/18/18 08:14 BP 156/72 H 06/18/18 08:17 Pulse Ox 100 06/18/18 08:14 Weight - Most Recent: 78.97 kg I&O - Last 24 Hours: Intake & Output 06/17/18 06/18/18 06/18/18 22:59 06:59 14:59 Intake Total 4325 240 Output Total 4950 Balance -625 240 Lab Results Last 24 Hours: Laboratory Results - last 24 hr 06/17/18 06/17/18 06/17/18 Range/Units 14:08 14:08 14:55 WBC 6.55 (4.23-9.07) K/mm3 RBC 3.26 L (4.63-6.08) M/mm3 Hgb 10.5 L (13.7-17.5) gm/L Hct 31.3 L (40.1-51.0) % MCV 96.0 H (79.0-92.2) fl MCH 32.2 (25.7-32.2) pg MCHC 33.5 (32.2-35.5) g/dl RDW Std Deviation 44.4 H (35.1-43.9) fL Plt Count 215 (163-337) K/mm3 MPV 9.6 (9.4-12.3) fl Neut % (Auto) 57.7 (34.0-67.9) % Lymph % (Auto) 27.3 (21.8-53.1) % [place] % (Auto) 8.9 (5.3-12.2) % Eos % (Auto) 5.3 (0.8-7.0) Baso % (Auto) 0.6 (0.1-1.2) % Neut # (Auto) 3.78 (1.78-5.38) K/mm3 Lymph # (Auto) 1.79 (1.32-3.57) K/mm3 [place] # (Auto) 0.58 (0.30-0.82) K/mm3 Eos # (Auto) 0.35 (0.04-0.54) K/mm3 Baso # (Auto) 0.04 (0.01-0.08) K/mm3 Sodium 140 (136-145) mEq/L Potassium 3.8 (3.5-5.1) mEq/L Chloride 105 (98-107) mEq/L Carbon Dioxide 25 (21-32) mEq/L Anion Gap 13.8 (5-15) BUN 15 (7-18) mg/dL Creatinine 1.3 (0.7-1.3) mg/dL Est Cr Clr Drug Dosing 38.84 mL/min Estimated GFR (MDRD) 52 (>60) mL/min BUN/Creatinine Ratio 11.5 L (14-18) Glucose 113 (83-115) mg/dL Calcium 8.6 (8.5-10.1) mg/dL Magnesium (1.8-2.4) mg/dl Total Bilirubin 0.7 (0.2-1.0) mg/dL AST 21 (15-37) U/L ALT 25 (16-63) U/L Alkaline Phosphatase 109 (46-116) U/L Total Protein 5.7 L (6.4-8.2) g/dl Albumin 2.7 L (3.4-5.0) g/dl Globulin 3.0 gm/dL Albumin/Globulin Ratio 0.9 L (1-2) Urine Color Red H (Yellow) Urine Appearance Turbid H (Clear) Urine pH 6.0 (5.0-8.0) Ur Specific [place] 1.015 (1.005-1.030) Urine Protein 3+ H (Negative) Urine Glucose (UA) Negative (Negative) Urine Ketones 1+ H (Negative) Urine Occult Blood 3+ H (Negative) Urine Nitrite Negative (Negative) Urine Bilirubin 3+ H (Negative) Urine Urobilinogen 1.0 (0.2-1.0) Ur Leukocyte Esterase 3+ H (Negative) Urine RBC Too numerous to cnt H (0-5) /hpf Urine WBC 10-20 H (0-5) /hpf Ur Epithelial Cells 0-5 (0-5) /hpf Urine Bacteria Moderate H (FEW) /hpf Urine Mucus Few (FEW) /hpf 06/18/18 06/18/18 Range/Units 05:20 05:20 WBC 7.06 (4.23-9.07) K/mm3 RBC 3.43 L (4.63-6.08) M/mm3 Hgb 10.9 L (13.7-17.5) gm/L Hct 33.0 L (40.1-51.0) % MCV 96.2 H (79.0-92.2) fl MCH 31.8 (25.7-32.2) pg MCHC 33.0 (32.2-35.5) g/dl RDW Std Deviation 44.1 H (35.1-43.9) fL Plt Count 207 (163-337) K/mm3 MPV 9.8 (9.4-12.3) fl Neut % (Auto) 67.6 (34.0-67.9) % Lymph % (Auto) 20.0 L (21.8-53.1) % [place] % (Auto) 7.5 (5.3-12.2) % Eos % (Auto) 4.5 (0.8-7.0) Baso % (Auto) 0.4 (0.1-1.2) % Neut # (Auto) 4.77 (1.78-5.38) K/mm3 Lymph # (Auto) 1.41 (1.32-3.57) K/mm3 [place] # (Auto) 0.53 (0.30-0.82) K/mm3 Eos # (Auto) 0.32 (0.04-0.54) K/mm3 Baso # (Auto) 0.03 (0.01-0.08) K/mm3 Sodium 141 (136-145) mEq/L Potassium 4.1 (3.5-5.1) mEq/L Chloride 105 (98-107) mEq/L Carbon Dioxide 27 (21-32) mEq/L Anion Gap 13.1 (5-15) BUN 17 (7-18) mg/dL Creatinine 1.3 (0.7-1.3) mg/dL Est Cr Clr Drug Dosing 38.84 mL/min Estimated GFR (MDRD) 52 (>60) mL/min BUN/Creatinine Ratio 13.1 L (14-18) Glucose 107 (83-115) mg/dL Calcium 8.9 (8.5-10.1) mg/dL Magnesium 1.9 (1.8-2.4) mg/dl Total Bilirubin (0.2-1.0) mg/dL AST (15-37) U/L ALT (16-63) U/L Alkaline Phosphatase (46-116) U/L Total Protein (6.4-8.2) g/dl Albumin (3.4-5.0) g/dl Globulin gm/dL Albumin/Globulin Ratio (1-2) Urine Color (Yellow) Urine Appearance (Clear) Urine pH (5.0-8.0) Ur Specific [place] (1.005-1.030) Urine Protein (Negative) Urine Glucose (UA) (Negative) Urine Ketones (Negative) Urine Occult Blood (Negative) Urine Nitrite (Negative) Urine Bilirubin (Negative) Urine Urobilinogen (0.2-1.0) Ur Leukocyte Esterase (Negative) Urine RBC (0-5) /hpf Urine WBC (0-5) /hpf Ur Epithelial Cells (0-5) /hpf Urine Bacteria (FEW) /hpf Urine Mucus (FEW) /hpf Arsen Results Last 24 Hours: Microbiology 06/17/18 14:55 Urine Culture - Preliminary Urine, Catheterized NO GROWTH AFTER 1 DAY Med Orders - Current: Current Medications Acetaminophen (Tylenol) 650 mg PO Q4H PRN PRN Reason: Pain (Mild 1-3)/fever Calcium Carbonate/Glycine (Tums) 750 mg PO ACBREAKFASTANDBED PRN PRN Reason: GAS Carvedilol (Coreg) 6.25 mg PO BID [facility] Last Admin: 06/18/18 08:15 Dose: 6.25 mg Clopidogrel Bisulfate (Plavix) 75 mg PO DAILY [facility] Last Admin: 06/18/18 08:18 Dose: 75 mg Hydromorphone HCl (Dilaudid) 0.25 mg IVPUSH Q2H PRN PRN Reason: Pain (severe 7-10) Isosorbide Mononitrate (Imdur) 30 mg PO DAILY [facility] Last Admin: 06/18/18 08:17 Dose: 30 mg Nitroglycerin (Nitrostat) 0.4 mg SL ASDIRECTED PRN PRN Reason: Chest Pain Ramipril 2.5 MgPt (Own) 2.5 mg PO DAILY [facility] Last Admin: 06/18/18 08:19 Dose: 2.5 mg Rousuvastatin 40mg (Pt Own) 1 each PO DAILY [facility] Last Admin: 06/18/18 08:18 Dose: 1 each Omeprazole (Omeprazole) 20 mg PO BEDTIME [facility] Ondansetron HCl (Zofran Odt) 4 mg PO Q4H PRN PRN Reason: nausea, able to take PO Ondansetron HCl (Zofran) 4 mg IV Q4H PRN PRN Reason: Nausea/Vomiting Tamsulosin HCl (Flomax) 0.4 mg PO DAILY [facility] Last Admin: 06/18/18 08:13 Dose: 0.4 mg Discontinued Medications Famotidine (Pepcid) 20 mg PO BID [facility] Lidocaine HCl (Xylocaine 2% Jelly) 10 ml MUCMEM ONETIME ONE Stop: 06/17/18 14:27 Last Admin: 06/17/18 14:35 Dose: 10 ml Non-Formulary Medication (Multivitamin [Multivitamins]) 1 each PO DAILY [facility] Non-Formulary Medication (Ranitidine Hcl) 150 mg PO DAILY [facility] Pantoprazole Sodium (Protonix) 40 mg PO DAILY [facility] - Exam Quality Assessment: Urine Catheter, DVT Prophylaxis General: Alert, Oriented, Cooperative, No Acute Distress HEENT: Pupils Equal, Pupils Reactive, EOMI Neck: Trachea Midline, No JVD Lungs: Normal Respiratory Effort Cardiovascular: Regular Rate, Regular Rhythm GI/Abdominal Exam: Normal Bowel Sounds, Soft, Non-Tender, No Organomegaly, No Distention (Male) Exam: Deferred Back Exam: Normal Inspection Extremities: Normal Inspection, Normal Capillary Refill Skin: Warm Neurological: No New Focal Deficit Psy/Mental Status: Alert, Normal Affect, Normal Mood - Problem List & Annotations (1) Anemia SNOMED Code(s): 249316487 Code(s): D64.9 - ANEMIA, UNSPECIFIED Status: Acute Current Visit: Yes (2) Hematuria SNOMED Code(s): 07927961 Code(s): R31.9 - HEMATURIA, UNSPECIFIED Status: Acute Priority: High Current Visit: Yes Qualifiers: Hematuria type: gross Qualified Code(s): R31.0 - Gross hematuria - Problem List Review Problem List Initiated/Reviewed/Updated: Yes - My Orders Last 24 Hours: My Active Orders 06/18/18 12:45 Calcium Carbonate [Tums] 750 mg PO ACBREAKFASTANDBED PRN 06/19/18 05:00 FOLIC ACID [CHEM] Routine VITAMIN B12 [CHEM] Routine VITAMIN D,25-HYDROXY [CHEM] Routine - Plan Plan:: Assessment/Plan: Acute: Hematuria * Likely 2/2 use of straight catheter for urinary retention * Risk factors: On Plavix and ASA--> hold ASA for now; continue Plavix for CAD * His urologist Dr. Tabares instructed him to start straight-cathing d/t difficulty urinating * Last night 1200mls tiffani blood and some clots per daughter * UA positive for blood and possible infection * Urine culture pending * 3-way catheter for bladder irrigation * Urologist on-call at [facility] in [place] contacted in ED recommended to observe him tonight * F/U with urologist Anemia * Likely 2/2 above * Hgb 10.5 (14.1 a week ago) * Monitor * Replenish with PRBCs PRN Chronic: HTN CAD on Plavix and ASA h/o DC; no stent, medical management only per cardiology note on 06/16/18 GERD Enlarged prostate Colon CA Plan: Admit to observation Routine AM Labs Heart Healthy diet DVT prophylaxis/GI prophylaxis Code status: CPR only; PCP: Dr. Fernandez
[2018-06-18] MEDS: Calcium Carbonate 500 MG Tab.Chew PO PRN ×2 (16:18→21:26)
[2018-06-18] MEDS: Omeprazole 20 MG Cap.CR**PT OWN PO SCH (17:24)
[2018-06-18] MEDS ORDERED: Non-Formulary Medication 1 Each (Omeprazole 20 MG) PO SCH (17:30)
[2018-06-18] MEDS ORDERED: Omeprazole 20 MG Cap.CR**PT OWN PO SCH (21:00)
[2018-06-19] MEDS: CARVEDILOL 3.125 MG PO SCH ×2 (07:29→18:08)
[2018-06-19] MEDS: ISOSORBIDE MONONITRATE 30 MG PO SCH (08:03)
[2018-06-19] MEDS: Tamsulosin 0.4 MG Cap.ER**PT OWN PO SCH (08:03)
[2018-06-19] MEDS: ROSUVASTATIN 40 MG PO SCH (08:03)
[2018-06-19] MEDS: RAMIPRIL 2.5 MG PO SCH (08:03)
[2018-06-19] MEDS: Omeprazole 20 MG Cap.CR**PT OWN PO SCH ×2 (08:04→18:38)
[2018-06-19] MEDS: CLOPIDOGREL 75 MG PO SCH (08:04)
--- NOTE | 2018-06-19 15:06 | PCM.PN ---
- General Info Date of Service: 06/19/18 Functional Status: Reports: Pain Controlled, Tolerating Diet, Ambulating, Urinating - Review of Systems General: Reports: No Symptoms HEENT: Reports: No Symptoms Pulmonary: Reports: No Symptoms Cardiovascular: Reports: No Symptoms Gastrointestinal: Reports: No Symptoms Genitourinary: Reports: No Symptoms Musculoskeletal: Reports: No Symptoms Skin: Reports: No Symptoms Neurological: Reports: No Symptoms Psychiatric: Reports: No Symptoms - Patient Data Vitals - Most Recent: Last Vital Signs Temp 36.6 C 06/19/18 12:04 Pulse 79 06/19/18 12:04 Resp 16 06/19/18 12:04 BP 107/83 06/19/18 12:04 Pulse Ox 99 06/19/18 12:04 Weight - Most Recent: 78.517 kg I&O - Last 24 Hours: Intake & Output 06/19/18 06/19/18 06/19/18 06:59 14:59 22:59 Intake Total 4400 180 Output Total 7300 Balance -2900 180 Lab Results Last 24 Hours: Laboratory Results - last 24 hr 06/19/18 06/19/18 06/19/18 Range/Units 06:25 06:25 06:25 WBC (4.23-9.07) K/mm3 RBC (4.63-6.08) M/mm3 Hgb (13.7-17.5) gm/L Hct (40.1-51.0) % MCV (79.0-92.2) fl MCH (25.7-32.2) pg MCHC (32.2-35.5) g/dl RDW Std Deviation (35.1-43.9) fL Plt Count (163-337) K/mm3 MPV (9.4-12.3) fl Neut % (Auto) (34.0-67.9) % Lymph % (Auto) (21.8-53.1) % [place] % (Auto) (5.3-12.2) % Eos % (Auto) (0.8-7.0) Baso % (Auto) (0.1-1.2) % Neut # (Auto) (1.78-5.38) K/mm3 Lymph # (Auto) (1.32-3.57) K/mm3 [place] # (Auto) (0.30-0.82) K/mm3 Eos # (Auto) (0.04-0.54) K/mm3 Baso # (Auto) (0.01-0.08) K/mm3 Sodium 139 (136-145) mEq/L Potassium 3.9 (3.5-5.1) mEq/L Chloride 105 (98-107) mEq/L Carbon Dioxide 25 (21-32) mEq/L Anion Gap 12.9 (5-15) BUN 21 H (7-18) mg/dL Creatinine 1.3 (0.7-1.3) mg/dL Est Cr Clr Drug Dosing 38.84 mL/min Estimated GFR (MDRD) 52 (>60) mL/min BUN/Creatinine Ratio 16.2 (14-18) Glucose 103 (83-115) mg/dL Calcium 9.0 (8.5-10.1) mg/dL Magnesium 1.9 (1.8-2.4) mg/dl Vitamin B12 415 (193-986) pg/ml Vitamin D 25-Hydroxy 17.1 L (30.0-100.0) ng/ml Folate 42.8 (8.6-58.9) ng/mL 06/19/18 Range/Units 06:28 WBC 9.59 H (4.23-9.07) K/mm3 RBC 3.39 L (4.63-6.08) M/mm3 Hgb 10.9 L (13.7-17.5) gm/L Hct 32.6 L (40.1-51.0) % MCV 96.2 H (79.0-92.2) fl MCH 32.2 (25.7-32.2) pg MCHC 33.4 (32.2-35.5) g/dl RDW Std Deviation 44.9 H (35.1-43.9) fL Plt Count 181 (163-337) K/mm3 MPV 9.4 (9.4-12.3) fl Neut % (Auto) 73.4 H (34.0-67.9) % Lymph % (Auto) 15.1 L (21.8-53.1) % [place] % (Auto) 8.1 (5.3-12.2) % Eos % (Auto) 2.9 (0.8-7.0) Baso % (Auto) 0.3 (0.1-1.2) % Neut # (Auto) 7.03 H (1.78-5.38) K/mm3 Lymph # (Auto) 1.45 (1.32-3.57) K/mm3 [place] # (Auto) 0.78 (0.30-0.82) K/mm3 Eos # (Auto) 0.28 (0.04-0.54) K/mm3 Baso # (Auto) 0.03 (0.01-0.08) K/mm3 Sodium (136-145) mEq/L Potassium (3.5-5.1) mEq/L Chloride (98-107) mEq/L Carbon Dioxide (21-32) mEq/L Anion Gap (5-15) BUN (7-18) mg/dL Creatinine (0.7-1.3) mg/dL Est Cr Clr Drug Dosing mL/min Estimated GFR (MDRD) (>60) mL/min BUN/Creatinine Ratio (14-18) Glucose (83-115) mg/dL Calcium (8.5-10.1) mg/dL Magnesium (1.8-2.4) mg/dl Vitamin B12 (193-986) pg/ml Vitamin D 25-Hydroxy (30.0-100.0) ng/ml Folate (8.6-58.9) ng/mL Arsen Results Last 24 Hours: Microbiology 06/17/18 14:55 Urine Culture - Final Urine, Catheterized NO GROWTH AFTER 2 DAYS Med Orders - Current: Current Medications Acetaminophen (Tylenol) 650 mg PO Q4H PRN PRN Reason: Pain (Mild 1-3)/fever Calcium Carbonate/Glycine (Tums) 750 mg PO ACBREAKFASTANDBED PRN PRN Reason: GAS Last Admin: 06/18/18 21:26 Dose: 750 mg Carvedilol (Coreg) 6.25 mg PO BIDMEALS [facility] Last Admin: 06/19/18 07:29 Dose: 6.25 mg Clopidogrel Bisulfate (Plavix) 75 mg PO DAILY [facility] Last Admin: 06/19/18 08:04 Dose: 75 mg Hydromorphone HCl (Dilaudid) 0.25 mg IVPUSH Q2H PRN PRN Reason: Pain (severe 7-10) Isosorbide Mononitrate (Imdur) 30 mg PO DAILY [facility] Last Admin: 06/19/18 08:03 Dose: 30 mg Nitroglycerin (Nitrostat) 0.4 mg SL ASDIRECTED PRN PRN Reason: Chest Pain Ramipril 2.5 MgPt (Own) 2.5 mg PO DAILY [facility] Last Admin: 06/19/18 08:03 Dose: 2.5 mg Rousuvastatin 40mg (Pt Own) 1 each PO DAILY [facility] Last Admin: 06/19/18 08:03 Dose: 1 each Omeprazole (Omeprazole) 20 mg PO DAILY [facility] Last Admin: 06/19/18 08:04 Dose: Not Given Ondansetron HCl (Zofran Odt) 4 mg PO Q4H PRN PRN Reason: nausea, able to take PO Ondansetron HCl (Zofran) 4 mg IV Q4H PRN PRN Reason: Nausea/Vomiting Tamsulosin HCl (Flomax) 0.4 mg PO DAILY [facility] Last Admin: 06/19/18 08:03 Dose: 0.4 mg Discontinued Medications Carvedilol (Coreg) 6.25 mg PO BID [facility] Last Admin: 06/18/18 08:15 Dose: 6.25 mg Famotidine (Pepcid) 20 mg PO BID [facility] Lidocaine HCl (Xylocaine 2% Jelly) 10 ml MUCMEM ONETIME ONE Stop: 06/17/18 14:27 Last Admin: 06/17/18 14:35 Dose: 10 ml Non-Formulary Medication (Multivitamin [Multivitamins]) 1 each PO DAILY [facility] Non-Formulary Medication (Ranitidine Hcl) 150 mg PO DAILY [facility] Non-Formulary Medication (Omeprazole) 20 mg PO DAILY [facility] Omeprazole (Omeprazole) 20 mg PO BEDTIME [facility] Pantoprazole Sodium (Protonix) 40 mg PO DAILY [facility] - Exam Quality Assessment: DVT Prophylaxis General: Alert, Oriented, Cooperative, No Acute Distress HEENT: Pupils Equal, Pupils Reactive, EOMI Neck: Trachea Midline, No JVD Lungs: Normal Respiratory Effort Cardiovascular: Regular Rate, Regular Rhythm GI/Abdominal Exam: Normal Bowel Sounds, Soft, Non-Tender, No Organomegaly, No Distention (Male) Exam: Deferred Back Exam: Normal Inspection Extremities: Normal Capillary Refill Skin: Warm Neurological: No New Focal Deficit Psy/Mental Status: Alert, Normal Affect, Normal Mood - Problem List & Annotations (1) Anemia SNOMED Code(s): 604330525 Code(s): D64.9 - ANEMIA, UNSPECIFIED Status: Acute Current Visit: Yes (2) Hematuria SNOMED Code(s): 79406503 Code(s): R31.9 - HEMATURIA, UNSPECIFIED Status: Acute Priority: High Current Visit: Yes Qualifiers: Hematuria type: gross Qualified Code(s): R31.0 - Gross hematuria - Problem List Review Problem List Initiated/Reviewed/Updated: Yes - My Orders Last 24 Hours: My Active Orders 06/18/18 20:37 Consult to Case Management/[employer] [CONS] Routine 06/19/18 11:16 Bladder Scan [RC] Q8HR 06/20/18 09:00 Consult to Occupational Therapy [OT Evaluation and Treatment] [CONS] Routine Consult to Physical Therapy [PT Evaluation and Treatment] [CONS] Routine Cholecalciferol (Vitamin D3) [Vitamin D3] 1,000 units PO DAILY - Plan Plan:: Assessment/Plan: Acute: Hematuria * Likely 2/2 use of straight catheter for urinary retention * Risk factors: On Plavix and ASA--> hold ASA for now; continue Plavix for CAD * His urologist Dr. Tabares instructed him to start straight-cath insertion d/ t difficulty urinating * Last night farfan reportedly was not inserted in far enough; readjusted with good urine output. * UA positive for blood and possible infection * Urine culture pending * 3-way catheter for bladder irrigation>>DC 06/20/18 * Urologist on-call at [facility] in [place] contacted in ED recommended to observe him tonight * F/U with urologist Anemia * Likely 2/2 above * Hgb 10.5 (14.1 a week ago) * Monitor * Replenish with PRBCs PRN Chronic: HTN CAD on Plavix and ASA h/o CO; no stent, medical management only per cardiology note on 06/16/18 GERD Enlarged prostate Colon CA Plan: Obs, DC planning needed; CM ordered for 06/20/18. Change OP urology appt to late May or early Jul 2018. Routine AM Labs Heart Healthy diet DVT prophylaxis/GI prophylaxis Code status: CPR only; PCP: Dr. Fernandez
[2018-06-20] MEDS: Calcium Carbonate 500 MG Tab.Chew PO PRN (00:54)
[2018-06-20] MEDS: Cholecalciferol (Vitamin D3) 1,000 Unit Tab PO SCH (08:19)
[2018-06-20] MEDS: RAMIPRIL 2.5 MG PO SCH (08:21)
[2018-06-20] MEDS: CLOPIDOGREL 75 MG PO SCH (08:21)
[2018-06-20] MEDS: ROSUVASTATIN 40 MG PO SCH (08:21)
[2018-06-20] MEDS: ISOSORBIDE MONONITRATE 30 MG PO SCH (08:21)
[2018-06-20] MEDS: Tamsulosin 0.4 MG Cap.ER**PT OWN PO SCH (08:22)
[2018-06-20] MEDS: CARVEDILOL 3.125 MG PO SCH ×2 (08:22→16:50)
[2018-06-20] MEDS: Omeprazole 20 MG Cap.CR**PT OWN PO SCH (16:50)
[2018-06-21] MEDS: Cholecalciferol (Vitamin D3) 1,000 Unit Tab PO SCH (08:55)
[2018-06-21] MEDS: ISOSORBIDE MONONITRATE 30 MG PO SCH (08:56)
[2018-06-21] MEDS: RAMIPRIL 2.5 MG PO SCH (08:56)
[2018-06-21] MEDS: CLOPIDOGREL 75 MG PO SCH (08:56)
[2018-06-21] MEDS: Tamsulosin 0.4 MG Cap.ER**PT OWN PO SCH (08:56)
[2018-06-21] MEDS: CARVEDILOL 3.125 MG PO SCH (08:57)
[2018-06-21] MEDS: ROSUVASTATIN 40 MG PO SCH (08:57)
--- NOTE | 2018-06-22 12:08 | PCM.DCSUM1 ---
Discharge Summary - Hospital Course Diagnosis: Stroke: No - Discharge Data Discharge Date: 06/21/18 Discharge Disposition: Home, Self-Care 01 Condition: Good - Discharge Diagnosis/Problem(s) (1) Anemia SNOMED Code(s): 374132511 ICD Code: D64.9 - ANEMIA, UNSPECIFIED Status: Acute (2) Hematuria SNOMED Code(s): 57186025 ICD Code: R31.9 - HEMATURIA, UNSPECIFIED Status: Acute Priority: High Qualifiers: Hematuria type: gross Qualified Code(s): R31.0 - Gross hematuria - Patient Summary/Data Consults: Consultations 06/18/18 20:37 Consult to Case Management/Electric Frying Pan [employer]r [CONS] Routine 06/20/18 09:00 Consult to Occupational Therapy [OT Evaluation and Treatment] [CONS] Routine Consult to Physical Therapy [PT Evaluation and Treatment] [CONS] Routine - Patient Instructions Diet: Heart Healthy Diet Activity: As Tolerated Driving: Do Not Drive Showering/Bathing: May Shower Notify Provider of: Fever, Increased Pain, Nausea and/or Vomiting - Discharge Plan *PRESCRIPTION DRUG MONITORING PROGRAM REVIEWED*: Not Applicable *COPY OF PRESCRIPTION DRUG MONITORING REPORT IN PATIENT [place]: Not Applicable Prescriptions/Med Rec: Cholecalciferol (Vitamin D3) [Vitamin D3] 1,000 units PO DAILY #30 tablet Home Medications: Home Meds Omeprazole 20 mg PO DAILY 05/31/18 [History] Aspirin 81 mg PO DAILY 06/16/18 [History] Carvedilol [Coreg] 6.25 mg PO BIDMEALS 06/16/18 [History] Clopidogrel Bisulfate [Clopidogrel] 75 mg PO DAILY 06/16/18 [History] Isosorbide Mononitrate [Isosorbide Mononitrate ER] 30 mg PO DAILY 06/16/18 [ History] Nitroglycerin 0.4 mg SL ASDIRECTED PRN 06/16/18 [History] Ramipril 2.5 mg PO DAILY 06/16/18 [History] Rosuvastatin [Crestor] 40 mg PO DAILY 06/16/18 [History] Tamsulosin HCl 0.4 mg PO DAILY 06/16/18 [History] Calcium Carbonate [Tums X-Str] 750 tab PO ACBREAKFASTANDBED PRN 06/17/18 [ History] Cholecalciferol (Vitamin D3) [Vitamin D3] 1,000 units PO DAILY #30 tablet [Rx] Oxygen Therapy Mode: Room Air Patient Handouts: Indwelling Urinary Catheter Care, Adult, [id number], Hematuria, Adult Forms: ED Department Discharge Referrals: Noel Fernandez MD [Primary Care Provider] - 06/29/18 11:30 am (please attend the scheduled appointment with your primary provider.) Robbi Tabares MD [Physician] - (Urologist.They will contact you to schedule an appointment.) - General Info Date of Service: 06/17/18 - Patient Data Vitals - Most Recent: Last Vital Signs Temp 36.3 C 06/21/18 11:10 Pulse 72 06/21/18 11:10 Resp 14 06/21/18 11:10 BP 123/72 06/21/18 11:10 Pulse Ox 100 06/21/18 11:10 Weight - Most Recent: 77.383 kg I&O - Last 24 hours: Intake & Output 06/21/18 06/22/18 06/22/18 22:59 06:59 14:59 Intake Total 600 Output Total 1650 Balance -1050 Med Orders - Current: Current Medications Discontinued Medications Acetaminophen (Tylenol) 650 mg PO Q4H PRN PRN Reason: Pain (Mild 1-3)/fever Calcium Carbonate/Glycine (Tums) 750 mg PO ACBREAKFASTANDBED PRN PRN Reason: GAS Last Admin: 06/20/18 00:54 Dose: 750 mg Carvedilol (Coreg) 6.25 mg PO BID [facility] Last Admin: 06/18/18 08:15 Dose: 6.25 mg Carvedilol (Coreg) 6.25 mg PO BIDMEALS [facility] Last Admin: 06/21/18 08:57 Dose: 6.25 mg Cholecalciferol (Vitamin D3) 1,000 units PO DAILY [facility] Last Admin: 06/21/18 08:55 Dose: 1,000 units Clopidogrel Bisulfate (Plavix) 75 mg PO DAILY [facility] Last Admin: 06/21/18 08:56 Dose: 75 mg Famotidine (Pepcid) 20 mg PO BID [facility] Hydromorphone HCl (Dilaudid) 0.25 mg IVPUSH Q2H PRN PRN Reason: Pain (severe 7-10) Isosorbide Mononitrate (Imdur) 30 mg PO DAILY [facility] Last Admin: 06/21/18 08:56 Dose: 30 mg Lidocaine HCl (Xylocaine 2% Jelly) 10 ml MUCMEM ONETIME ONE Stop: 06/17/18 14:27 Last Admin: 06/17/18 14:35 Dose: 10 ml Nitroglycerin (Nitrostat) 0.4 mg SL ASDIRECTED PRN PRN Reason: Chest Pain Non-Formulary Medication (Multivitamin [Multivitamins]) 1 each PO DAILY [facility] Ramipril 2.5 MgPt (Own) 2.5 mg PO DAILY [facility] Last Admin: 06/21/18 08:56 Dose: 2.5 mg Non-Formulary Medication (Ranitidine Hcl) 150 mg PO DAILY [facility] Rousuvastatin 40mg (Pt Own) 1 each PO DAILY [facility] Last Admin: 06/21/18 08:57 Dose: 1 each Non-Formulary Medication (Omeprazole) 20 mg PO DAILY [facility] Omeprazole (Omeprazole) 20 mg PO BEDTIME [facility] Omeprazole (Omeprazole) 20 mg PO DAILY [facility] Last Admin: 06/19/18 08:04 Dose: Not Given Omeprazole (Omeprazole) 20 mg PO DAILY@1700 [facility] Last Admin: 06/20/18 16:50 Dose: 20 mg Ondansetron HCl (Zofran Odt) 4 mg PO Q4H PRN PRN Reason: nausea, able to take PO Ondansetron HCl (Zofran) 4 mg IV Q4H PRN PRN Reason: Nausea/Vomiting Pantoprazole Sodium (Protonix) 40 mg PO DAILY [facility] Tamsulosin HCl (Flomax) 0.4 mg PO DAILY [facility] Last Admin: 06/21/18 08:56 Dose: 0.4 mg
== END 2018-06-21 17:01 | disposition home or self-care (01) ==
LOC: JD.ED 12:54 → JD.MS 18:34
PROVIDERS: ADMIT Internal Medicine; ATTEND Internal Medicine
DX: R31.0 Gross hematuria (principal); D64.9 Anemia, unspecified; I10 Essential (primary) hypertension; I25.10 Atherosclerotic heart disease of native coronary artery without angina pectoris; I25.2 Old myocardial infarction; K21.9 Gastro-esophageal reflux disease without esophagitis; N40.0 Benign prostatic hyperplasia without lower urinary tract symptoms; C18.9 Malignant neoplasm of colon, unspecified; Z79.02 Long term (current) use of antithrombotics/antiplatelets; Z79.82 Long term (current) use of aspirin; Z79.899 Other long term (current) drug therapy
CPT/HCPCS: 36415; 51700; 51702; 51798; 80048; 80053; 81001; 82306; 82607; 82746; 83735; 85025; 87086; 97161; 97165; 97530; 99284; A9270; G0378